=== PATIENT | male | born 1950 | race Caucasian/White ===

== ENCOUNTER 2016-11-15 17:59 | Emergency (ER) | payer OTHER ==
[2016-11-15 18:14] VITALS: BP 119/60; PULSE 101; RESP 16; TEMP 98.3; O2SAT 100
--- NOTE | 2016-11-15 18:40 | ED PDOC ---
HPI: General Adult Time Seen by Provider: 11/15/16 18:24 Chief Complaint (Nursing): ENT Problem Chief Complaint (Provider): Neck pain History Per: Patient, Family (family member at bedside is translating for patient in [place]) Onset/Duration Of Symptoms: Days (2x weeks) Have you had recent travel within the past 21 days to any of the following countries: [place], [place], [place] or [place]?: No Current Symptoms Are (Timing): Still Present Additional Complaint(s): The patient is a 66 yo male, past medical history of HIV and DM who presents to the ED for evaluation of neck pain x 2 weeks. Patient states he woke up with the pain 2 weeks ago and it has persisted. Family member at bedside told patient to come to ED today for eval. Patient has not taken any meds for pain relief since pain started 2 weeks ago. He also states this throat started to hurt him last week as well. He denies any fever or chills. He is tolerating liquids and solids. Patient rates current pain as 6/10. Patient denies associated chest pain, shortness of breath or dyspnea on exertion. He states neck pain does not radiate. PCP: Dr. Lorne Bermudez Past Medical History Reviewed: Historical Data, Nursing Documentation, Vital Signs Vital Signs: Last Vital Signs Temp 98.3 F 11/15/16 18:10 Pulse 101 H 11/15/16 18:10 Resp 16 11/15/16 18:10 BP 119/60 11/15/16 18:10 Pulse Ox 100 11/15/16 18:42 - Medical History PMH: Diabetes, HIV - Surgical History Surgical History: Appendectomy - Family History Family History: States: No Known Family Hx - Living Arrangements Living Arrangements: With Family - Social History Current smoker - smoking cessation education provided: No Alcohol: None Drugs: Denies - Home Medications Home Medications: Ambulatory Orders Medication Instructions Recorded Cyclobenzaprine [Cyclobenzaprine 10 mg PO TID PRN #20 tab 11/15/16 HCl] Naproxen [Naprosyn] 500 mg PO BID #20 tab 11/15/16 - Allergies Allergies/Adverse Reactions: Allergies Allergy/AdvReac Type Severity Reaction Status Date / Time No Known Allergies Allergy Verified 11/15/16 18:10 Review of Systems ROS Statement: Except As Marked, All Systems Reviewed And Found Negative Constitutional: Negative for: Fever, Chills, Weakness ENT: Positive for: Throat Pain Cardiovascular: Negative for: Chest Pain Respiratory: Negative for: Shortness of Breath Gastrointestinal: Negative for: Nausea, Vomiting Musculoskeletal: Positive for: Neck Pain (x 2 weeks, no trauma, states he woke up with pain 2 weeks ago) Neurological: Negative for: Headache, Dizziness Physical Exam - Reviewed Nursing Documentation Reviewed: Yes Vital Signs Reviewed: Yes - Physical Exam Appears: Positive for: Non-toxic Head Exam: Positive for: ATRAUMATIC, NORMAL INSPECTION, NORMOCEPHALIC Skin: Positive for: Normal Color. Negative for: Rash Eye Exam: Positive for: Normal appearance ENT: Positive for: Normal ENT Inspection. Negative for: Pharyngeal Erythema, Tonsillar Exudate, Tonsillar Swelling Neck: Positive for: Decreased ROM (decreased ROM due to pain, muscle spasms to anterior and posterior neck noted as well) Cardiovascular/Chest: Positive for: Regular Rate, Rhythm Respiratory: Positive for: Normal Breath Sounds. Negative for: Wheezing, Respiratory Distress Back: Negative for: Vertebral Tenderness Extremity: Positive for: Normal ROM. Negative for: Pedal Edema Lymphatic: Positive for: Adenopathy (no cervical LAD) Neurologic/Psych: Positive for: Alert, Oriented. Negative for: Motor/Sensory Deficits - ECG O2 Sat by Pulse Oximetry: 100 (RA) Pulse Ox Interpretation: Normal - Other Rad cervical spine x-ray X-Ray: Interpreted by Me, Viewed By Me X-Ray Interpretation: straightening due to muscle spasm, no fx, no dis, degenerative changes Medical Decision Making Medical Decision Making: Time: 1831 Impression: Torticollis Plan: -- Valium 5mg PO -- Motrin 600 mg PO -- Throat culture -- XR C-Spine -- Rapid Strep Patient reports marked improvement of pain after meds were given. Rapid strep is negative. Patient given prescriptions for Naprosyn and Flexeril for pain control and was instructed to follow up with primary doctor in 1-2 days. Patient is aware he can return to ED if acutely worse. Scribe Attestation: Documented by Joan Spencer acting as a scribe for GIRISH Panchal Provider Attestation: All medical record entries made by the Scribe were at my direction and personally dictated by me. I have reviewed the chart and agree that the record accurately reflects my personal performance of the history, physical exam, medical decision making, and the department course for this patient. I have also personally directed, reviewed, and agree with the discharge instructions and disposition. Disposition - Clinical Impression Clinical Impression: Torticollis - Patient ED Disposition Is Patient to be Admitted: No Counseled Patient/Family Regarding: Studies Performed, Diagnosis, Need For Followup, Rx Given - Disposition Referrals: Lorne Bermudez MD [Family Provider] - Disposition: Routine/Home Disposition Time: 20:23 Condition: IMPROVED Additional Instructions: Take rx meds as directed as needed for pain. Rest and avoid heavy lifting. Follow up with primary care doctor in 1-2 days or return any time if acutely worse. Prescriptions: Cyclobenzaprine [Cyclobenzaprine HCl] 10 mg PO TID PRN #20 tab PRN Reason: Muscle Spasm Naproxen [Naprosyn] 500 mg PO BID #20 tab Instructions: Cervical Strain (DC) Forms: [employer] ([place]) Print Language: JAPANESE
--- NOTE | 2016-11-16 10:25 | RAD ---
PROCEDURE: Cervical Spine Radiographs. HISTORY: Pain. COMPARISON: None. FINDINGS: BONES: Alignment maintained. No fracture. Dens Intact. DISC SPACES: There are advanced endplate and disc degenerative head disease seen more prominent at C3-C4 and C5-C6. There are anterior osteophyte formation seen specially at C5-C6. SOFT TISSUES: Normal. No prevertebral soft tissue swelling. OTHER FINDINGS: None. IMPRESSION: Straightening of the cervical spine. No evidence of acute fracture or subluxation. 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 If clinically warranted further assessment by CT may be obtained.
== END 2016-11-15 20:42 | disposition home or self-care (01) ==
LOC: H.ER 17:59
DX: M43.6 Torticollis (principal); E11.9 Type 2 diabetes mellitus without complications; Z21 Asymptomatic human immunodeficiency virus [HIV] infection status